=== PATIENT | female | born 1945 | race Caucasian/White ===

== ENCOUNTER 2022-07-29 13:51 | Inpatient (IN) | payer MEDICARE, OTHER ==
[~2022-07-29] VITALS: Ht 170.2 cm; Wt 99.3 kg
[2022-07-29] MEDS ORDERED: IV NS 0.9% 1,000 ML BAG IV ONE (14:30)
--- NOTE | 2022-07-29 14:32 | NUR ---
COVID SWAB COLLECTED AND SENT TO LAB
[2022-07-29] MEDS ORDERED: POLY17PO4 GT (14:37)
[2022-07-29] MEDS ORDERED: HEPA50007 SQ (14:37)
[2022-07-29] MEDS ORDERED: AMIO200T5 GT (14:37)
[2022-07-29] MEDS ORDERED: DIPH25CA51 GT (14:37)
[2022-07-29] MEDS ORDERED: POTA20TA29 GT (14:37)
[2022-07-29] MEDS ORDERED: FOLI1TAB34 GT (14:37)
[2022-07-29] MEDS ORDERED: ACET-2605 GT (14:37)
[2022-07-29] MEDS ORDERED: ASCO-352 GT (14:37)
[2022-07-29] MEDS ORDERED: CHLO473M5 MM (14:37)
[2022-07-29] MEDS ORDERED: FAMO20TA8 GT (14:37)
[2022-07-29] MEDS ORDERED: IPRA4AER IH ×2 (14:37)
[2022-07-29] MEDS ORDERED: INSU100V7 SQ (14:37)
[2022-07-29] MEDS ORDERED: TRAM50TA2 GT (14:37)
[2022-07-29] MEDS ORDERED: PIPE3.379 IV (14:37)
[2022-07-29] MEDS ORDERED: QUET25TA GT (14:37)
[2022-07-29] MEDS ORDERED: NUT.237L67 GT (14:37)
[2022-07-29] MEDS ORDERED: DEXT50DI8 IV (14:37)
[2022-07-29] MEDS ORDERED: DIPH28CR10 TP (14:37)
[2022-07-29] MEDS ORDERED: ZINC1CAP3 GT (14:37)
[2022-07-29] MEDS ORDERED: EPOE1VIA6 SQ (14:37)
[2022-07-29] MEDS ORDERED: NITR0.4T48 SL (14:37)
[2022-07-29] MEDS ORDERED: ACET-868 GT (14:37)
[2022-07-29] MEDS ORDERED: LEVO125T8 GT (14:37)
[2022-07-29] MEDS ORDERED: SENN-261 GT (14:37)
[2022-07-29] MEDS ORDERED: AMIN30LI2 GT (14:37)
[2022-07-29] MEDS ORDERED: INSU100V3 SQ (14:37)
[2022-07-29] MEDS ORDERED: PANT40SU2 GT (14:37)
[2022-07-29 14:40] LABS: BASOPHILS % (AUTO) 0.2 % (0.0-2.0); LYMPHOCYTES # (AUTO) 2.1 K/uL (0.8-4.8); MEAN CORPUSCULAR HGB CONC 34 g/dl (31.0-36.0); MEAN CORPUSCULAR VOLUME 103 fL (82-100); MONOCYTES # (AUTO) 0.7 K/uL (0.1-1.30); MONOCYTES % (AUTO) 6.5 % (2.0-12.0); NEUTROPHILS # (AUTO) 8.3 K/uL (1.8-8.9); NEUTROPHILS % (AUTO) 73.3 % (43.0-81.0); PLATELET COUNT (AUTO) 263 K/uL (150-450); WHITE BLOOD COUNT (AUTO) 11.3 K/uL (4.3-11.0)
[2022-07-29 14:43] LABS: RED BLOOD CELL COUNT(AUTO) 1.94 MIL/uL (4.0-5.2)
[2022-07-29 14:46] LABS: HEMATOCRIT 20 % (33-45); HEMOGLOBIN 6.8 g/dL (11.5-14.8)
--- NOTE | 2022-07-29 14:53 | NUR ---
URINE SAMPLE COLLECTED AND SENT TO LAB
[2022-07-29 15:20] LABS: ALANINE AMINOTRANSFERASE 49 U/L (12-78); ALKALINE PHOSPHATASE 128 U/L (46-116); ASPARTATE AMINOTRANSFERASE 53 U/L (15-37); BILIRUBIN,DIRECT 0.1 mg/dL (0.0-0.2); BILIRUBIN,TOTAL 0.2 mg/dL (0.2-1.0); CALCIUM, SERUM 10.3 mg/dL (8.5-10.1); CARBON DIOXIDE 31 mmol/L (21-32); CHLORIDE 93 mmol/L (98-107); CREATININE 2.8 mg/dL (0.6-1.3); GLUCOSE 208 mg/dL (74-106); POTASSIUM 4.1 mmol/L (3.5-5.1); SODIUM SERUM 130 mmol/L (136-145); TOTAL PROTEIN, SERUM 7.5 g/dL (6.4-8.2)
[2022-07-29 15:32] LABS: ALBUMIN 1.2 g/dL (3.4-5.0); UREA NITROGEN, BLOOD 92 mg/dL (7-18)
[2022-07-29 16:10] LABS: COLOR,URINE YELLOW (YELLOW)
[2022-07-29 16:11] LABS: BILIRUBIN,URINE NEGATIVE (NEGATIVE); PH,URINE 7.5 (5.0-8.0); PROTEIN,URINE 2+ mg/dl (NEGATIVE); UGLUCOSE NEGATIVE (NEGATIVE); UROBILINOGEN,URINE 0.2 EU/dL (0.2)
[2022-07-29 16:12] LABS: LEUKOCYTE ESTERASE ,URINE 3+ (NEGATIVE); NITRITE, URINE NEGATIVE (NEGATIVE)
[2022-07-29 16:13] LABS: BACTERIA,URINE Moderate /HPF (None Seen); SQUAMOUS EPITHELIAL CELL,UR Few /HPF (None Seen)
--- NOTE | 2022-07-29 17:07 | NUR ---
BED GIVEN 102
--- NOTE | 2022-07-29 17:17 | NUR ---
PT REPORT GIVEN TO BIMAL JORDAN.
[2022-07-29 17:27] LABS: BASOPHILS % (MANUAL) 0 % (0.0-2.0); EOSINOPHILS % (MANUAL) 1 % (0-4); LYMPHOCYTES % (MANUAL) 17 % (16-48); MONOCYTES % (MANUAL) 6 % (0-11.0); NEUTROPHILS % (MANUAL) 76 (42-76)
[2022-07-29] MEDS ORDERED: diphenhydrAMINE HCL 25 MG CAPSULE PO PRN (17:30)
[2022-07-29] MEDS ORDERED: MAGNESIUM HYDROXIDE 30 ML UDC PO PRN (17:30)
[2022-07-29] MEDS ORDERED: POLYETHYLENE GLYCOL 3350 17 GM POWD.PACK GT PRN (17:30)
[2022-07-29] MEDS ORDERED: DEXTROSE 50%-WATER 50 ML DISP.SYRIN IV PRN ×2 (17:30)
[2022-07-29] MEDS ORDERED: ONDANSETRON HCL/PF 4 MG/2 ML VIAL IVP PRN (17:30)
[2022-07-29] MEDS ORDERED: NEPRO VAN 237 ML CAN GT SCH (17:30)
[2022-07-29] MEDS ORDERED: ACETAMINOPHEN ES 500 MG TABLET GT PRN (17:30)
[2022-07-29] MEDS ORDERED: ACETAMINOPHEN 325 MG TABLET PO PRN ×2 (17:30)
[2022-07-29] MEDS ORDERED: TRAMADOL HCL 50 MG TABLET GT PRN (17:30)
[2022-07-29] MEDS ORDERED: MAG HYDROX/AL HYDROX/SIMETH 30 ML UDC PO PRN (17:30)
[2022-07-29] MEDS ORDERED: Z GUARD REMEDY 4 OZ OINT TP PRN (17:30)
--- NOTE | 2022-07-29 18:11 | NUR ---
PT TRANSFERRED TO 106 VIA [place] ACLS PROTOCOL, ACCOMPANIED BY RT. WARM HANDOFF GIVEN TO RN ASSIGNED.
--- NOTE | 2022-07-29 18:34 | NUR ---
RN NOTE RECEIVED PATIENT FOR LUIS
[2022-07-29] MEDS: BLOOD SUGAR DIAGNOSTIC 1 EACH STRIP IN SCH ×2 (18:38→23:36)
[2022-07-29] MEDS: VIT B CMPLX 3/FA/VIT C/BIOTIN 1 TAB TABLET GT SCH (18:39)
[2022-07-29] MEDS: IV NS 0.9% 1,000 ML IV PRN (18:40)
--- NOTE | 2022-07-29 19:36 | NUR ---
INITIAL RIGHT UPPER EXTREMITY VENOUS SHOWED POSITIVE FOR SVT AT RIGHT MEDIAN CUBITAL VEIN. ADVISED SQL REPORT ANALYST OF PRELIMINARY FINDING.
--- NOTE | 2022-07-29 19:45 | NUR ---
RN NOTE PATIENT GIVEN TO NIGHT NURSE FOR LUIS.
[2022-07-29 20:00] VITALS: BP 97/42
[2022-07-29] MEDS ORDERED: VANCOMYCIN 1.25 GM in IV D5W 250 ML IV ONE (20:00)
--- NOTE | 2022-07-29 21:36 | NUR ---
SANCHEZ SAMUELS INFORMED PATIENT WITH POOR IV ACCESS, NOT BEING ABLE TO GIVE ABX IV OR RBC'S. ATTEMPTED MULTIPLE TIMES WITH ORDERS FOR MIDLINE.
[2022-07-29 22:00] VITALS: BP 97/42
[2022-07-29] MEDS ORDERED: ZOLPIDEM TARTRATE 5 MG TABLET PO PRN (22:00)
[2022-07-29] MEDS: INSULIN GLARGINE, 100 UNIT/ML CARTRIDGE SQ SCH (23:36)
[2022-07-29] MEDS: INSULIN REGULAR, HUMAN 100 UNIT/ML 3 ML VIAL SQ PRN (23:38)
[2022-07-29] MEDS: CHLORHEXIDINE GLUCONATE 15 ML UDC MM SCH (23:41)
[2022-07-29] MEDS: SENNOSIDES 8.6 MG TABLET GT SCH (23:41)
[2022-07-29] MEDS: CEFEPIME 1 GM in IV D5W 50 ML IV SCH (23:50)
[2022-07-30] VITALS (15 sets, daily range): BP systolic 81–123; BP diastolic 39–69
--- NOTE | 2022-07-30 00:14 | NUR ---
SPOKE TO RAVIN GARCIA DAUGHTER IN LAW,[phone], AND CONSENT OBTAINED FOR BLOOD TRANSFUSION OBTAINED. PER DAUGHTER IN LAW SHE STATED SHE ALWAYS GIVES CONSENTS.
[2022-07-30] MEDS ORDERED: NEPRO 1,000 ML BOTTLE GT PRN (06:00)
--- NOTE | 2022-07-30 06:30 | NUR ---
RN CLOSING NOTE: EYES OPEN. DOES NOT FOLLOW COMMANDS. TRACH WITH VENT WORKING AT PRESCRIBED SETTINGS. GT IN PLACE PATENT. WOUND CARE TO AFFECTED AREAS OF SACRAL, RIGHT HIP, LEFT BUTTOCK, BILATERAL HEELS, DRY RASH ON BACK, FOR WOUND CONSULT. IV ON LEFT AC PATENT WITH IVF OF 75 ML NS. BUE, BLE EDEMA. ELEVATED WITH PILLOWS. S/P BLOOD TRANSFUSION. BLOOD GLUCOSE CHECKED AND COVERED ORDERED. TURNED AND REPOSITIONED WITH PILLOWS. KEPT CLEAN AND COMFORTABLE. HOB ELEVATED SEMI-FOWLERS POSITION. BILATERAL HALF SIDE RAILS UP X2. BED IN LOW POSITION, BED EXIT ALARM, LOCKED, CALL LIGHT IN REACH. LEFT SOFT WRIST RESTRAINT WITH SKIN CHECKS, NO BREAKDOWN.
[2022-07-30] MEDS: BLOOD SUGAR DIAGNOSTIC 1 EACH STRIP IN SCH ×4 (06:37→23:02)
[2022-07-30 06:38] LABS: BASOPHILS % (AUTO) 0.1 % (0.0-2.0); EOSINOPHILS % (AUTO) 2.3 % (0.0-6.0); HEMATOCRIT 23 % (33-45); HEMOGLOBIN 7.7 g/dL (11.5-14.8); LYMPHOCYTES # (AUTO) 1.8 K/uL (0.8-4.8); LYMPHOCYTES % (AUTO) 14.4 % (20.0-44.0); MEAN CORPUSCULAR HGB CONC 33 g/dl (31.0-36.0); MEAN CORPUSCULAR VOLUME 100 fL (82-100); MONOCYTES # (AUTO) 0.7 K/uL (0.1-1.30); MONOCYTES % (AUTO) 5.9 % (2.0-12.0); NEUTROPHILS # (AUTO) 9.8 K/uL (1.8-8.9); NEUTROPHILS % (AUTO) 77.3 % (43.0-81.0); PLATELET COUNT (AUTO) 259 K/uL (150-450); RED BLOOD CELL COUNT(AUTO) 2.31 MIL/uL (4.0-5.2); WHITE BLOOD COUNT (AUTO) 12.7 K/uL (4.3-11.0)
[2022-07-30] MEDS: INSULIN REGULAR, HUMAN 100 UNIT/ML 3 ML VIAL SQ PRN ×4 (06:41→23:04)
[2022-07-30 07:20] LABS: CHOLESTEROL 76 mg/dL (<200); HDL CHOLESTEROL 13 mg/dL (40-60); LDL 28 mg/dL (0-99); T4 (THYROXINE) 3.4 ug/dL (4.7-13.3); THYROID STIMULATING HORMONE 19.344 uIU/mL (0.358-3.74); TRIGLYCERIDES 244 mg/dL (30-150)
[2022-07-30 07:25] LABS: IRON, SERUM 104 ug/dl (50-175); TOTAL IRON BINDING CAPACITY 86 ug/dl (250-450)
[2022-07-30] MEDS ORDERED: LEVOTHYROXINE SODIUM 125 MCG TABLET GT SCH (07:30)
--- NOTE | 2022-07-30 07:48 | NUR ---
[facility] RN OPENING NOTES: RECEIVED PATIENT IN BED AWAKE, ALERT AND ORIENTED X 1, ON MECHANICAL VENT PRESCRIBED, NO RESPIRATORY DISTRESS NOTED.IV ACCESS LEFT AC PATENT WITH NS RUNNING 75 ML/HR, Y.WITH GT WILL START AT 8AM X 20 HOUR.BRUNO CATHTER CONNECTED TO DRAINING BAG VIA GRAVITY DRAINING YELLOW CLEAR URINE.NOTED WITH LEFT HAND SOFT RESTRAINT.SKIN AND CIRCULATION CHECKED WITHIN NORMAL.NOTED WITH RIGHT ARM AND BOTH LEG EDEMA +4. BED IN LOW AND LOCKED POSITION, SIDE RAILS UP, CALL LIGHT WITHIN REACH.WILL MONITOR
--- NOTE | 2022-07-30 08:58 | NUR ---
WOUND CARE CONSULT: ATTEMPTED TO SEE PT THIS AM BUT PT WAS NOT TURNED DUE TO HAVING PROCEDURE. HEELS NOTED TO HAVE DEEP TISSUE INJURIES AND RT ARM EDEMA NOTED. G TUBE STOMA NOTED TO BE LARGE. G TUBE CLAMPED. 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 DR CLAYTON AND DR LORENZ CALLED FOR SURGICAL AND DPM CONSULTS. PT IS ON JESUSITA ISOFLEX LOW AIRLOSS BED. BRUNO CATH NOTED. DISCUSSED SKIN PROTECTION WITH NURSING STAFF IN AGREEMENT WITH PLAN OF CARE.
[2022-07-30] MEDS: PROSTAT (PYXIS) 30 ML UDC GT SCH (09:00)
[2022-07-30] MEDS: AMIODARONE HCL 200 MG TABLET GT SCH (09:00)
[2022-07-30 09:22] LABS: CALCIUM, SERUM 10.1 mg/dL (8.5-10.1); CHLORIDE 94 mmol/L (98-107); CREATININE 2.9 mg/dL (0.6-1.3); GLUCOSE 200 mg/dL (74-106); MAGNESIUM 2.5 mg/dL (1.8-2.4); PHOSPHORUS 3.1 mg/dL (2.5-4.9); POTASSIUM 3.7 mmol/L (3.5-5.1); SODIUM SERUM 130 mmol/L (136-145)
[2022-07-30 09:58] LABS: CARBON DIOXIDE 27 mmol/L (21-32)
[2022-07-30 09:59] LABS: UREA NITROGEN, BLOOD 99 mg/dL (7-18)
[2022-07-30] MEDS: CHLORHEXIDINE GLUCONATE 15 ML UDC MM SCH ×2 (10:24→21:09)
[2022-07-30] MEDS: PANTOPRAZOLE 40 MG VIAL IV SCH ×2 (10:25→17:04)
[2022-07-30] MEDS: LEVOTHYROXINE SODIUM 137 MCG TABLET PO SCH (10:25)
[2022-07-30] MEDS: QUETIAPINE FUMARATE 25 MG TABLET GT SCH ×3 (10:25→17:05)
[2022-07-30] MEDS: ZINC SULFATE 220 MG CAPSULE GT SCH (10:25)
[2022-07-30] MEDS: ASCORBIC ACID 500 MG TABLET GT SCH (10:27)
--- NOTE | 2022-07-30 11:00 | NUR ---
RN NOTES: NOTIFIED MICHAEL CANALES SOILS ANALYST CORDARONE VIA GT NOT GIVEN DUE TO LOW BP 89/39 WITH ORDER OF MIDODRINE VIA GT
[2022-07-30] MEDS: MIDODRINE HCL (5MG) 5 MG TABLET GT SCH ×3 (11:41→17:04)
[2022-07-30] MEDS ORDERED: IV NS 0.9% 500 ML IV ONE (12:30)
--- NOTE | 2022-07-30 14:00 | NUR ---
RN NOTES: NOTIFIED MICHAEL MARADIAGASERGEI AFTER 500 ML BOLUS AND MIDODRINE GIVEN AROUND 12NOON BP IS 80/40 WITH ORDER TO TRANSFER TO ICU AND START LEVOPHED, CHARGE NURSE EDUIN AWARE OK TO START LEVOPHED NOW . PT IS DNR CALL DAUGHTER IN LAW RAVIN ASKED IF OK TO PROCEED WITH IV AND ICU EVEN PT IS DNR COMFORT SHE SAID OF COURSE GO AHEAD AND DO IT
--- NOTE | 2022-07-30 14:22 | NUR ---
RN notes: called Amy Meraz BP after midodrine and bolus 74/41 with order to upgrade to icu and start levophed , Charge nurse and nurse supervisor core drilling made aware.
[2022-07-30] MEDS ORDERED: NOREPINEPHRINE 8 MG in IV NS 0.9% 242 ML IV PRN (14:30)
--- NOTE | 2022-07-30 14:44 | NUR ---
PER NURSING SUP WILL KEEP PT. IN [facility] ICU OVERFLOW SINCE NO BED IN ICU,WILL KEEP TO MONITOR.
--- NOTE | 2022-07-30 17:45 | NUR ---
RN NOTES: DR MICHAEL CANALES SPOKE TO FAMILY WHO DECIDED COMFORT MEASURES WITH ORDER TO DC LEVOPHED
[2022-07-30] MEDS: VIT B CMPLX 3/FA/VIT C/BIOTIN 1 TAB TABLET GT SCH (18:04)
--- NOTE | 2022-07-30 19:00 | NUR ---
RN CLOSING NOTE: PT IN BED ASLEEP DOES NOT FOLLOW COMMANDS. TRACH WITH VENT WORKING AT PRESCRIBED SETTINGS. GT IN PLACE PATENT. WOUND CARE TO AFFECTED AREAS OF SACRAL, RIGHT HIP, LEFT BUTTOCK, BILATERAL HEELS, DRY RASH ON BACK, FOR WOUND CONSULT. IV ON LEFT HAND PATENT WITH IVF OF 75 ML NS. ALSO WITH LEFT UPPER ARM MIDLINE. PATENT FLUSHING WELL.BUE, BLE EDEMA. ELEVATED WITH PILLOWS. BLOOD GLUCOSE CHECKED AND COVERED ORDERED. TURNED AND REPOSITIONED WITH PILLOWS. KEPT CLEAN AND COMFORTABLE. HOB ELEVATED SEMI-FOWLERS POSITION. BILATERAL HALF SIDE RAILS UP X2. BED IN LOW POSITION, BED EXIT ALARM, LOCKED, CALL LIGHT IN REACH. LEFT SOFT WRIST RESTRAINT WITH SKIN CHECKS, NO BREAKDOWN.
[2022-07-30 19:34] LABS: OCCULT BLOOD STOOL POSITIVE (NEGATIVE)
--- NOTE | 2022-07-30 19:40 | NUR ---
[facility] RN OPENING NOTES: RECEIVED PATIENT IN BED OBTUNDED, OPENS EYES, ON MECHANICAL VENT PRESCRIBED, NO RESPIRATORY DISTRESS NOTED. IV ACCESS LEFT UA ML WITH NS RUNNING 75 ML/HR, WITH GT IN PLACED RUNNING NEPHRO AT 45 ML/HR X 20 HOUR. WITH BRUNO CATHETER CONNECTED TO DRAINING BAG VIA GRAVITY DRAINING YELLOW CLEAR URINE. NOTED WITH RIGHT ARM AND BOTH LEG EDEMA +4. BED IN LOW AND LOCKED POSITION, SIDE RAILS UP, CALL LIGHT WITHIN REACH. PT FOCUS ON COMFORT MEASURES, FAMILY AT BEDSIDE, WILL CONTINUE TO MONITOR THROUGHOUT THE SHIFT.
[2022-07-30] MEDS: IV NS 0.9% 1,000 ML IV PRN (19:55)
[2022-07-30] MEDS: CEFEPIME 1 GM in IV D5W 50 ML IV SCH (21:09)
[2022-07-30] MEDS: SENNOSIDES 8.6 MG TABLET GT SCH (21:09)
[2022-07-30 21:45] LABS: BAND % (MANUAL) 7 % (0.0-5.0); EOSINOPHILS % (MANUAL) 2 % (0-4); LYMPHOCYTES % (MANUAL) 11 % (16-48); MONOCYTES % (MANUAL) 2 % (0-11.0); NEUTROPHILS % (MANUAL) 78 (42-76)
[2022-07-30] MEDS: INSULIN GLARGINE, 100 UNIT/ML CARTRIDGE SQ SCH (23:03)
[2022-07-31] VITALS: BP 91/42
--- NOTE | 2022-07-31 | NUR ---
RN NOTE BS CHECKED AT 156 MG/DL, 2 UNITS OF INSULIN GIVEN PER SLIDING SCALE. WILL CONT TO MONITOR.
[2022-07-31 04:00] VITALS: BP 83/33
--- NOTE | 2022-07-31 04:00 | NUR ---
RN NOTE HOLD FEEDING AT THIS TIME. NEPHRO 45 ML/HR ORDERED X 20 HRS ONLY. RESUME FEEDING AT 0800. WILL ENDORSE TO AM SHIFT NURSE.
[2022-07-31] MEDS: BLOOD SUGAR DIAGNOSTIC 1 EACH STRIP IN SCH ×4 (05:09→23:53)
[2022-07-31] MEDS: INSULIN REGULAR, HUMAN 100 UNIT/ML 3 ML VIAL SQ PRN ×2 (05:13→17:19)
--- NOTE | 2022-07-31 05:36 | NUR ---
RN NOTE BS CHECKED AT 166 MG/DL, 3 UNITS OF INSULIN GIVEN PER SLIDING SCALE. WILL CONT TO MONITOR.
[2022-07-31 05:59] LABS: BASOPHILS % (AUTO) 0.2 % (0.0-2.0); EOSINOPHILS % (AUTO) 3.2 % (0.0-6.0); HEMATOCRIT 21 % (33-45); LYMPHOCYTES # (AUTO) 1.8 K/uL (0.8-4.8); LYMPHOCYTES % (AUTO) 15.3 % (20.0-44.0); MEAN CORPUSCULAR HGB CONC 34 g/dl (31.0-36.0); MEAN CORPUSCULAR VOLUME 101 fL (82-100); MONOCYTES # (AUTO) 0.5 K/uL (0.1-1.30); MONOCYTES % (AUTO) 4.3 % (2.0-12.0); NEUTROPHILS # (AUTO) 9.2 K/uL (1.8-8.9); PLATELET COUNT (AUTO) 256 K/uL (150-450); RED BLOOD CELL COUNT(AUTO) 2.05 MIL/uL (4.0-5.2); WHITE BLOOD COUNT (AUTO) 11.9 K/uL (4.3-11.0)
[2022-07-31 06:16] LABS: CALCIUM, SERUM 8.8 mg/dL (8.5-10.1); CARBON DIOXIDE 24 mmol/L (21-32); CHLORIDE 103 mmol/L (98-107); CREATININE 2.5 mg/dL (0.6-1.3); GLUCOSE 164 mg/dL (74-106); MAGNESIUM 2.3 mg/dL (1.8-2.4); PHOSPHORUS 2.6 mg/dL (2.5-4.9); POTASSIUM 2.9 mmol/L (3.5-5.1); SODIUM SERUM 138 mmol/L (136-145)
--- NOTE | 2022-07-31 06:43 | NUR ---
[facility] RN CLOSING NOTES: PATIENT REMAINS IN BED OPENS EYES, ON MECHANICAL VENT PRESCRIBED, NO RESPIRATORY DISTRESS NOTED. IV ACCESS LEFT UA ML WITH NS RUNNING 75 ML/HR, GTUBE FEEDING STOPPED AT THIS TIME, NOTED WITH GREENISH COLORED DISCHARGE FROM THE SITE. ALL DUE MEDS GIVEN, KEPT DRY AND CLEAN, WITH BRUNO CATHETER DRAINING VIA GRAVITY WITH YELLOW COLORED URINE. NOTED WITH RIGHT ARM AND BOTH LEG EDEMA +4. BED IN LOW AND LOCKED POSITION, SIDE RAILS UP, CALL LIGHT WITHIN REACH. PT FOCUS ON COMFORT MEASURES, WILL ENDORSE TO AM SHIFT NURSE FOR CONTINUITY OF CARE.
[2022-07-31 06:56] LABS: UREA NITROGEN, BLOOD 95 mg/dL (7-18)
--- NOTE | 2022-07-31 07:13 | NUR ---
PER NIGHT RN REPORT, GTUBE IS OUT OF PLACE, WAITING FOR MD'S TO ADDRESS. PT IS NPO FOR THE TIME BEING.
[2022-07-31] MEDS: LEVOTHYROXINE SODIUM 137 MCG TABLET PO SCH (07:14)
--- NOTE | 2022-07-31 07:44 | NUR ---
RN OPENING NOTES: PATIENT REMAINS IN BED OPENS EYES, ON MECHANICAL VENT PRESCRIBED, NO RESPIRATORY DISTRESS NOTED. IV ACCESS LEFT UA ML WITH NS RUNNING 75 ML/HR, GTUBE FEEDING STOPPED AT THIS TIME, NOTED WITH GREENISH COLORED DISCHARGE FROM THE SITE. UNTIL FURTHER NOTICE FROM MD'S, PT IS NPO. BRUNO CATHETER DRAINING VIA GRAVITY WITH YELLOW COLORED URINE. NOTED WITH RIGHT ARM AND BOTH LEG EDEMA +4. BED IN LOW AND LOCKED POSITION, SIDE RAILS UP, CALL LIGHT WITHIN REACH. PT FOCUS ON COMFORT MEASURES, WILL CONT. TO MONITOR THROUGHOUT SHIFT.
[2022-07-31 08:00] VITALS: BP 88/40
[2022-07-31] MEDS ORDERED: VANCOMYCIN 1 GM in IV D5W 250 ML IV SCH (08:00)
[2022-07-31] MEDS: AMIODARONE HCL 200 MG TABLET GT SCH (08:06)
[2022-07-31] MEDS: PROSTAT (PYXIS) 30 ML UDC GT SCH (08:06)
[2022-07-31] MEDS: QUETIAPINE FUMARATE 25 MG TABLET GT SCH ×3 (08:06→16:06)
[2022-07-31] MEDS: MIDODRINE HCL (5MG) 5 MG TABLET GT SCH ×4 (08:06→16:06)
[2022-07-31] MEDS: ASCORBIC ACID 500 MG TABLET GT SCH (08:06)
[2022-07-31] MEDS: ZINC SULFATE 220 MG CAPSULE GT SCH (08:07)
[2022-07-31] MEDS: CHLORHEXIDINE GLUCONATE 15 ML UDC MM SCH ×2 (08:09→21:05)
[2022-07-31] MEDS: PANTOPRAZOLE 40 MG VIAL IV SCH ×2 (08:09→16:07)
[2022-07-31] MEDS: POTASSIUM CL. PREMIX PERIPHER. 50 ML IV SCH ×4 (11:25→14:09)
[2022-07-31 12:00] VITALS: BP 91/36
[2022-07-31] MEDS: DAKINS QUARTER STRENGTH (0.125%) 480 ML BOTTLE TOP SCH (12:01)
[2022-07-31] MEDS: IV NS 0.9% 1,000 ML IV PRN (12:58)
[2022-07-31] MEDS: VANCOMYCIN 0.75 GM in IV D5W 250 ML IV SCH (15:27)
[2022-07-31 16:00] VITALS: BP 117/79
[2022-07-31] MEDS: VIT B CMPLX 3/FA/VIT C/BIOTIN 1 TAB TABLET GT SCH (17:15)
--- NOTE | 2022-07-31 18:23 | NUR ---
RN CLOSING NOTES: PATIENT REMAINS IN BED OPENS EYES, ON ORDERED MECHANICAL VENT SETTINGS, NO RESPIRATORY DISTRESS NOTED. IV ACCESS LEFT UA ML WITH NS RUNNING 75 ML/HR, GTUBE FEEDING STOPPED AT THIS TIME, NOTED WITH GREENISH COLORED DISCHARGE FROM THE SITE. UNTIL FURTHER NOTICE FROM MD'S, PT IS NPO. BRUNO CATHETER DRAINING VIA GRAVITY WITH YELLOW COLORED URINE. 200ML OUT DURING AM SHIFT. NOTED WITH RIGHT ARM AND BOTH LEG EDEMA +4. BED IN LOW AND LOCKED POSITION, SIDE RAILS UP, CALL LIGHT WITHIN REACH. PT FOCUS ON COMFORT MEASURES, WILL ENDORSE TO RECRUITING ADMINISTRATOR RN FOR LUIS.
--- NOTE | 2022-07-31 18:33 | NUR ---
RECEIVED CALL FROM [facility], PT IS POSITIVE FOR MRSA IN RIGHT NARE. Addendum: 07/31/22 at 1834 by ARPIT HAIR RN REPORT GIVEN BY ILENE SALGADO.
[2022-07-31 18:54] LABS: ABG OXYGEN SATURATION 98.2 % (92.0-98.5); ABG PCO2 35.7 mmHg (35.0-45.0); ABG PH 7.473 (7.350-7.450); ABG PO2 117.1 mmHg (75.0-100.0); COHb 0.3 % (0.5-1.5); MetHb 0.3 % (0.0-1.5); O2Hb 97.6 % (94.0-97.0); PEEP,BG 5 cm H2O; SITE, ABG Left Radial; VENT MODE, BG AC 40%; VT, ABG 500 mL
--- NOTE | 2022-07-31 19:10 | NUR ---
RN NOTE PATIENT IN BED, CONFUSED, IN NO ACUTE DISTRESS, ON [facility]ILEY XLT TO MECHANICAL VENT WITH PRESCRIBED SETTINGS, SATURATION AT 100%, SR WITH BBB ON THE MONITOR, HR IS 95. PASTOR MIDLINE AND L WRIST 20G PATENT AND FLUSHING WELL, NO S/S OF INFECTION OR INFILTRATION. GTUBE DISLODGED, TUBE LEFT IN PLACE TO KEEP STOMA OPEN, PENDING REINSERTION BY GI. BRUNO CATHETER DRAINING TO A CLEAR, YELLOW OUTPUT. SAFETY MEASURES IN PLACE, WILL CONTINUE TO MONITOR
[2022-07-31 20:00] VITALS: BP 102/53
[2022-07-31] MEDS: CEFEPIME 1 GM in IV D5W 50 ML IV SCH (21:04)
[2022-07-31] MEDS: MUPIROCIN OINT 2% 22 GM TUBE NS SCH (21:06)
[2022-07-31] MEDS: SENNOSIDES 8.6 MG TABLET GT SCH (21:07)
[2022-07-31 21:08] LABS: BAND % (MANUAL) 2 % (0.0-5.0); EOSINOPHILS % (MANUAL) 4 % (0-4); LYMPHOCYTES % (MANUAL) 11 % (16-48); MONOCYTES % (MANUAL) 2 % (0-11.0); NEUTROPHILS % (MANUAL) 81 (42-76)
[2022-07-31] MEDS: INSULIN GLARGINE, 100 UNIT/ML CARTRIDGE SQ SCH (22:00)
[2022-08-01] VITALS: BP 92/39
[2022-08-01] MEDS: INSULIN REGULAR, HUMAN 100 UNIT/ML 3 ML VIAL SQ PRN ×2 (00:29→06:14)
[2022-08-01] MEDS: IV NS 0.9% 1,000 ML IV PRN (03:31)
[2022-08-01 04:00] VITALS: BP 103/40
--- NOTE | 2022-08-01 04:30 | NUR ---
RT pt received on current vent settings. vent plugged in to red outlet. alarms on and audible. trach secure and patent. ambu bag at bedside. spare trach at bedside. shift uneventful.
[2022-08-01] MEDS: BLOOD SUGAR DIAGNOSTIC 1 EACH STRIP IN SCH ×2 (06:13→12:38)
--- NOTE | 2022-08-01 07:14 | NUR ---
RN OPEN NOT RECEIVED PATIENT IN BED OPENS EYES, ON MECHANICAL VENT PRESCRIBED, NO RESPIRATORY DISTRESS NOTED. IV ACCESS LEFT UA ML WITH NS RUNNING 75 ML/HR, GTUBE FEEDING STOPPED AT THIS NOTED WITH GREENISH COLORED DISCHARGE FROM THE SITE. UNTIL FURTHER NOTICE FROM MD'S, PT IS NPO. BRUNO CATHETER DRAINING VIA GRAVITY WITH YELLOW COLORED URINE. NOTED WITH RIGHT ARM AND BOTH LEG EDEMA +4. BED IN LOW AND LOCKED POSITION, SIDE RAILS UP, CALL LIGHT WITHIN REACH. PT FOCUS ON COMFORT MEASURES, WILL CONT. TO MONITOR THROUGHOUT SHIFT.
--- NOTE | 2022-08-01 07:28 | NUR ---
RN NOTE PER DR CANALES, HE WILL REPLACE GTUBE 08/01 WITH 24 FR, [facility]ENTRAL SUPPLY WAS NOTIFIED VIA VOICEMAIL, R[place] WALLIS MADE AWARE AND WILL FOLLOW UP.
--- NOTE | 2022-08-01 07:29 | NUR ---
RN OPENING NOTES: RECEIVED PATIENT IN BED OBTUNDED, OPENS EYES, ON MECHANICAL VENT PRESCRIBED, NO RESPIRATORY DISTRESS NOTED. IV ACCESS LEFT UA ML WITH NS RUNNING 75 ML/HR, G TUBE WAS MISPLACED , WILL HAVE THE PROCEDURE OF G TUBE REPLACEMENT TODAY .PATIENT HAS BRUNO CATHETER CONNECTED TO DRAINING BAG VIA GRAVITY DRAINING YELLOW CLEAR URINE. NOTED WITH RIGHT ARM AND BOTH LEG EDEMA +4. BED IN LOW AND LOCKED POSITION, SIDE RAILS UP, CALL LIGHT WITHIN REACH. POC FOCUS ON COMFORT MEASURES, WILL CONTINUE TO MONITOR THROUGHOUT THE SHIFT.
[2022-08-01 07:35] LABS: BASOPHILS % (AUTO) 0.3 % (0.0-2.0); EOSINOPHILS % (AUTO) 3.2 % (0.0-6.0); HEMATOCRIT 23 % (33-45); HEMOGLOBIN 7.7 g/dL (11.5-14.8); LYMPHOCYTES # (AUTO) 1.4 K/uL (0.8-4.8); LYMPHOCYTES % (AUTO) 11.7 % (20.0-44.0); MEAN CORPUSCULAR HGB CONC 33 g/dl (31.0-36.0); MEAN CORPUSCULAR VOLUME 102 fL (82-100); MONOCYTES # (AUTO) 0.6 K/uL (0.1-1.30); MONOCYTES % (AUTO) 4.5 % (2.0-12.0); NEUTROPHILS # (AUTO) 9.9 K/uL (1.8-8.9); NEUTROPHILS % (AUTO) 80.3 % (43.0-81.0); PLATELET COUNT (AUTO) 301 K/uL (150-450); RED BLOOD CELL COUNT(AUTO) 2.26 MIL/uL (4.0-5.2); WHITE BLOOD COUNT (AUTO) 12.3 K/uL (4.3-11.0)
[2022-08-01] MEDS: LEVOTHYROXINE SODIUM 137 MCG TABLET PO SCH ×2 (07:42→08:38)
[2022-08-01 08:07] LABS: CALCIUM, SERUM 9.3 mg/dL (8.5-10.1); CARBON DIOXIDE 28 mmol/L (21-32); CHLORIDE 106 mmol/L (98-107); CREATININE 2.6 mg/dL (0.6-1.3); GLUCOSE 162 mg/dL (74-106); MAGNESIUM 2.5 mg/dL (1.8-2.4); PHOSPHORUS 3.6 mg/dL (2.5-4.9); POTASSIUM 3.5 mmol/L (3.5-5.1); SODIUM SERUM 140 mmol/L (136-145)
[2022-08-01 08:18] LABS: UREA NITROGEN, BLOOD 82 mg/dL (7-18)
[2022-08-01] MEDS: ASCORBIC ACID 500 MG TABLET GT SCH (08:39)
[2022-08-01] MEDS: AMIODARONE HCL 200 MG TABLET GT SCH (08:39)
[2022-08-01] MEDS: MIDODRINE HCL (5MG) 5 MG TABLET GT SCH ×2 (08:40→12:41)
[2022-08-01] MEDS: QUETIAPINE FUMARATE 25 MG TABLET GT SCH ×2 (08:40→12:40)
[2022-08-01] MEDS ORDERED: DIATR MEGLU/DIATRIZOATE SODIUM 30 ML BOTTLE (GASTROGRAPHIN) ONE (08:50)
[2022-08-01] MEDS: CHLORHEXIDINE GLUCONATE 15 ML UDC MM SCH (08:59)
[2022-08-01] MEDS: PROSTAT (PYXIS) 30 ML UDC GT SCH (08:59)
[2022-08-01] MEDS ORDERED: PANTOPRAZOLE 40 MG/PACK PACK GT SCH (09:00)
[2022-08-01] MEDS: ZINC SULFATE 220 MG CAPSULE GT SCH (09:01)
[2022-08-01] MEDS: DAKINS QUARTER STRENGTH (0.125%) 480 ML BOTTLE TOP SCH (09:09)
[2022-08-01] MEDS: MUPIROCIN OINT 2% 22 GM TUBE NS SCH (09:10)
[2022-08-01 10:58] VITALS: BP 97/36
[2022-08-01] MEDS ORDERED: PANT40SU2 GT (11:58)
[2022-08-01] MEDS ORDERED: LEVO137T24 PO (11:58)
[2022-08-01] MEDS ORDERED: CEFE1PIG3 IV (11:58)
[2022-08-01] MEDS ORDERED: MIDO5TAB4 GT (11:58)
[2022-08-01 12:00] VITALS: BP 76/40
[2022-08-01 13:33] LABS: BAND % (MANUAL) 3 % (0.0-5.0); EOSINOPHILS % (MANUAL) 5 % (0-4); LYMPHOCYTES % (MANUAL) 10 % (16-48); METAMYELOCYTES % 2 % (0-0); MONOCYTES % (MANUAL) 4 % (0-11.0); MYELOCYTES % 2 % (0-0); NEUTROPHILS % (MANUAL) 74 (42-76)
[2022-08-01] MEDS: VANCOMYCIN 0.75 GM in IV D5W 250 ML IV SCH (15:00)
[2022-08-01 16:07] VITALS: BP 116/60
--- NOTE | 2022-08-01 16:47 | NUR ---
RN NOTE DISCHARGE ORDER RECEIVED FROM THE DOCTOR , DISCHARGE INSTRUCTIONS PROVIDED IN [facility] AND REPORT WAS GIVEN TO THE RN LATONIA .PATIENT WAS TRANSFERRED TO THE SUBACUTE FACILITY . DISCHARGED FROM [facility]
== END 2022-08-01 17:42 | DRG 253 ==
LOC: ER 13:57 → TELE1 17:10 → TELE-TD 20:29 → ICUOV 07-30 14:22 → TELE-TD 07-30 17:56 → MEDSG1 07-31 10:28 → TELE1 07-31 12:17
PROVIDERS: ADMIT Nurse Practitioner Acute Care; ATTEND Nurse Practitioner Acute Care
PROC: 5A1945Z Respiratory Ventilation, 24-96 Consecutive Hours (ICD-10-PCS; principal; 2022-07-29)
PROC: 30233N1 Transfusion of Nonautologous Red Blood Cells into Peripheral Vein, Percutaneous Approach (ICD-10-PCS; 2022-07-29)
PROC: 05HA33Z Insertion of Infusion Device into Left Brachial Vein, Percutaneous Approach (ICD-10-PCS; 2022-07-30)
DX: K92.2 Gastrointestinal hemorrhage, unspecified (principal); N17.0 Acute kidney failure with tubular necrosis; J96.20 Acute and chronic respiratory failure, unspecified whether with hypoxia or hypercapnia; J95.851 Ventilator associated pneumonia; G93.41 Metabolic encephalopathy; E43 Unspecified severe protein-calorie malnutrition; L89.154 Pressure ulcer of sacral region, stage 4; L89.324 Pressure ulcer of left buttock, stage 4; L89.314 Pressure ulcer of right buttock, stage 4; L89.626 Pressure-induced deep tissue damage of left heel; D68.59 Other primary thrombophilia; E87.1 Hypo-osmolality and hyponatremia; I13.0 Hypertensive heart and chronic kidney disease with heart failure and stage 1 through stage 4 chronic kidney disease, or unspecified chronic kidney disease; L89.616 Pressure-induced deep tissue damage of right heel; I50.9 Heart failure, unspecified; I95.89 Other hypotension; Z99.11 Dependence on respirator [ventilator] status; Z93.0 Tracheostomy status; E11.22 Type 2 diabetes mellitus with diabetic chronic kidney disease; Z93.1 Gastrostomy status; R13.10 Dysphagia, unspecified; Z20.822 Contact with and (suspected) exposure to COVID-19; I48.91 Unspecified atrial fibrillation; I35.0 Nonrheumatic aortic (valve) stenosis; E03.9 Hypothyroidism, unspecified; I69.351 Hemiplegia and hemiparesis following cerebral infarction affecting right dominant side; Z74.01 Bed confinement status; Z51.5 Encounter for palliative care; F41.9 Anxiety disorder, unspecified; N18.9 Chronic kidney disease, unspecified; Z91.048 Other nonmedicinal substance allergy status; Z88.1 Allergy status to other antibiotic agents; Z79.4 Long term (current) use of insulin; Z79.01 Long term (current) use of anticoagulants; Z79.899 Other long term (current) drug therapy; Z79.51 Long term (current) use of inhaled steroids; Y84.8 Other medical procedures as the cause of abnormal reaction of the patient, or of later complication, without mention of misadventure at the time of the procedure; Y92.129 Unspecified place in nursing home as the place of occurrence of the external cause; B96.89 Other specified bacterial agents as the cause of diseases classified elsewhere; I25.2 Old myocardial infarction; I25.10 Atherosclerotic heart disease of native coronary artery without angina pectoris; E88.09 Other disorders of plasma-protein metabolism, not elsewhere classified; E87.6 Hypokalemia; Z68.34 Body mass index [BMI] 34.0-34.9, adult; E66.01 Morbid (severe) obesity due to excess calories; D50.0 Iron deficiency anemia secondary to blood loss (chronic); E86.0 Dehydration; E86.1 Hypovolemia
CPT/HCPCS: 31720; 36410; 36415; 36600; 71045-TC; 71250-TC; 74018; 76770-TC; 80048-TC; 80061-TC; 80076-TC; 80202-TC; 81001; 82272-TC; 82607-TC; 82962-TC; 83540-TC; 83605-TC; 83735-TC; 84100-TC; 84436-TC; 84443-TC; 84484-TC; 85025-TC; 85027-TC; 85730-TC; 86706; 86850-TC; 87040-TC; 87081-TC; 87086-TC; 87340; 93971-TC; 94002-TC; 94003-TC; 94760-TC; 94762-TC; 94799-TC; A6253; A6403; C9113; C9803; G0378; J0692; J1815; J3370; J3480; J7030; J7040; J7050; J7060; P9016; Q9963

== ENCOUNTER 2022-08-19 16:12 | Inpatient (IN) | payer MEDICARE, OTHER ==
[~2022-08-19] VITALS: Ht 167.6 cm; Wt 95.3 kg
[~2022-08-19 16:12] MED LIST: ACET-2605 GT; ACET-868 GT; AMIN30LI2 GT; AMIO200T5 GT; ASCO-352 GT; CEFE1PIG3 IV; CHLO473M5 MM; DEXT50DI8 IV; DIPH25CA51 GT; DIPH28CR10 TP; EPOE1VIA6 SQ; FOLI1TAB34 GT; HEPA50007 SQ; INSU100V3 SQ; INSU100V7 SQ; IPRA4AER IH; LEVO125T8 GT; LEVO137T24 PO; MIDO5TAB4 GT; NUT.237L67 GT; PANT40SU2 GT; PIPE3.379 IV; POLY17PO4 GT; POTA20TA29 GT; QUET25TA GT; SENN-261 GT; TRAM50TA2 GT; ZINC1CAP3 GT
--- NOTE | 2022-08-19 16:30 | NUR ---
CAMILLE [id number] from [facility] "AMS yesterday, Weakness,Respiratory distress, abnormal lab tests"
[2022-08-19] MEDS ORDERED: MIDO10TA GT (16:49)
--- NOTE | 2022-08-19 17:23 | NUR ---
ESTABLISHED IV LINE LEFT UPPER ARM 18G INFUSING
[2022-08-19] MEDS ORDERED: IV NS 0.9% 500 ML BAG IV ONE (17:30)
[2022-08-19 17:35] LABS: BASOPHILS % (AUTO) 0.1 % (0.0-2.0); EOSINOPHILS % (AUTO) 8.3 % (0.0-6.0); HEMATOCRIT 25 % (33-45); LYMPHOCYTES # (AUTO) 0.4 K/uL (0.8-4.8); LYMPHOCYTES % (AUTO) 5.3 % (20.0-44.0); MEAN CORPUSCULAR HGB CONC 32 g/dl (31.0-36.0); MEAN CORPUSCULAR VOLUME 107 fL (82-100); MONOCYTES # (AUTO) 0.3 K/uL (0.1-1.30); MONOCYTES % (AUTO) 4.3 % (2.0-12.0); NEUTROPHILS # (AUTO) 6.1 K/uL (1.8-8.9); PLATELET COUNT (AUTO) 274 K/uL (150-450); WHITE BLOOD COUNT (AUTO) 7.5 K/uL (4.3-11.0)
[2022-08-19 17:50] LABS: CALCIUM, SERUM 10.9 mg/dL (8.5-10.1); CARBON DIOXIDE 27 mmol/L (21-32); CHLORIDE 93 mmol/L (98-107); CREATININE 4.2 mg/dL (0.6-1.3); GLUCOSE 104 mg/dL (74-106); POTASSIUM 5.2 mmol/L (3.5-5.1); SODIUM SERUM 132 mmol/L (136-145)
[2022-08-19 17:56] LABS: SERUM AMMONIA < 10 umol/L (11-32)
[2022-08-19] MEDS ORDERED: ASPIRIN 325 MG TABLET GT ONE (18:00)
[2022-08-19] MEDS ORDERED: FUROSEMIDE 40 MG/4 ML VIAL IV ONE (18:00)
[2022-08-19] MEDS ORDERED: VANCOMYCIN 1 GM in IV D5W 250 ML IV SCH (18:00)
[2022-08-19] MEDS ORDERED: PIPERACILLIN /TAZOBACTAM 3.375 G in IV D5W 50 ML IV ONE (18:00)
[2022-08-19 18:04] LABS: ALANINE AMINOTRANSFERASE 18 U/L (12-78); ALKALINE PHOSPHATASE 149 U/L (46-116); ASPARTATE AMINOTRANSFERASE 31 U/L (15-37); BILIRUBIN,DIRECT 0.2 mg/dL (0.0-0.2); BILIRUBIN,TOTAL 0.4 mg/dL (0.2-1.0); TOTAL PROTEIN, SERUM 7.9 g/dL (6.4-8.2); UREA NITROGEN, BLOOD 117 mg/dL (7-18)
[2022-08-19 18:07] LABS: BAND % (MANUAL) 4 % (0.0-5.0); BASOPHILS % (MANUAL) 0 % (0.0-2.0); EOSINOPHILS % (MANUAL) 7 % (0-4); LYMPHOCYTES % (MANUAL) 9 % (16-48); MONOCYTES % (MANUAL) 4 % (0-11.0); NEUTROPHILS % (MANUAL) 76 (42-76)
[2022-08-19 18:10] LABS: ALBUMIN 1.1 g/dL (3.4-5.0)
[2022-08-19] MEDS ORDERED: ASPIRIN 325 MG TABLET ONE ×2 (18:27→19:48)
[2022-08-19] MEDS ORDERED: FUROSEMIDE 40 MG/4 ML VIAL ONE (18:27)
[2022-08-19] MEDS ORDERED: NOREPINEPHRINE 8 MG in IV NS 0.9% 242 ML IV PRN (18:30)
[2022-08-19] MEDS ORDERED: ALBUMIN 5% 25 GM in PREMIX 1 EA IV ONE (18:30)
[2022-08-19] MEDS ORDERED: NOREPINEPHRINE 8 MG in IV NS 0.9% 242 ML IV ONE (18:30)
[2022-08-19 18:31] LABS: THYROID STIMULATING HORMONE 13.858 uIU/mL (0.358-3.74)
--- NOTE | 2022-08-19 18:40 | NUR ---
RT Received pt on settings as noted with Shiley 8 XLT P trach.Pt tolerating current settings. Ambu bag at bedside. No new orders- will continue to monitor.
--- NOTE | 2022-08-19 18:45 | NUR ---
STARTED LEVOPHED AT LEFT AC AT THE RATE OF 0.1 MCG/KG/MIN PER PROTOCOL TO BE TITRATED TO EFFECT
[2022-08-19] MEDS ORDERED: ALBUMIN 25% 25 GM in PREMIX 1 EA IV ONE (19:00)
--- NOTE | 2022-08-19 19:00 | NUR ---
URINE SAMPLE OBTAINED SENT TO LAB
--- NOTE | 2022-08-19 19:34 | NUR ---
2ND IV LINE AT RIGHT UPPER ARM 18G
--- NOTE | 2022-08-19 19:38 | NUR ---
RT pt received on mechanical vent with current settings. trach, patent, secure. vent plugged in to red outlet. alarms on and audible. moderate, thick secretions suctioned via trach. no sob, no resp distress noted. ambu bag at bedside.
--- NOTE | 2022-08-19 19:40 | NUR ---
BP 72/21. HR 126 TITRATED LEVOPHEN TO 0.5MCG/MG/MIN.
--- NOTE | 2022-08-19 19:44 | NUR ---
COVID PCR ANTIGEN SWAB COLLECTED AND SENT TO LAB
[2022-08-19] MEDS ORDERED: PIPERACILLIN /TAZOBACTAM 3.375 G VIAL IV ONE (19:50)
[2022-08-19] MEDS ORDERED: VANCOMYCIN 1 GM VIAL ONE (19:50)
--- NOTE | 2022-08-19 20:13 | NUR ---
DAY SHIFT RN ENDORSED TO ADMIN ASPIRIN 325MG VIA [employer]. ADMIN ORDERED.
--- NOTE | 2022-08-19 20:20 | NUR ---
BRINA 8 INTACT VENT SETTING: FIO2 40% VT 500 RR 18 1:E 1:2 PEEP 5 TOLERATING AT 98%
--- NOTE | 2022-08-19 20:42 | NUR ---
LA 8.6
--- NOTE | 2022-08-19 20:53 | NUR ---
[facility] PAGED
[2022-08-19] MEDS ORDERED: TRAMADOL HCL 50 MG TABLET GT PRN (21:00)
[2022-08-19] MEDS ORDERED: NEPRO VAN 237 ML CAN GT SCH (21:00)
[2022-08-19] MEDS ORDERED: diphenhydrAMINE HCL 25 MG CAPSULE PO PRN (21:00)
[2022-08-19] MEDS ORDERED: Medication Not On Formulary EA (Ipratropium/Albuterol Sulfate (Combivent Respimat 20-100 IH PRN (21:00)
[2022-08-19] MEDS ORDERED: POLYETHYLENE GLYCOL 3350 17 GM POWD.PACK GT PRN (21:00)
[2022-08-19] MEDS ORDERED: CHLORHEXIDINE GLUCONATE 15 ML UDC MM SCH (21:00)
--- NOTE | 2022-08-19 21:03 | NUR ---
EMT AT PT'S BEDSIDE FOR EKG
--- NOTE | 2022-08-19 21:14 | NUR ---
CALLED RT FOR ABG
--- NOTE | 2022-08-19 21:18 | NUR ---
RT AT PT'S BEDSIDE FOR ABG
[2022-08-19] MEDS ORDERED: AMIODARONE 150 MG/3 ML VIAL IV ONE ×2 (21:29→21:30)
[2022-08-19 21:30] LABS: ABG BASE EXCESS -16.5 mmol/L; ABG PCO2 31.7 mmHg (35.0-45.0); ABG PH 7.155 (7.350-7.450); ABG PO2 96.9 mmHg (75.0-100.0); COHb 0.3 % (0.5-1.5); MetHb 0.4 % (0.0-1.5); O2Hb 95.4 % (94.0-97.0); SITE, ABG Right Radial; VENT MODE, BG AC 18 500 40% +5
[2022-08-19] MEDS ORDERED: Z GUARD REMEDY 4 OZ OINT TP PRN (21:30)
[2022-08-19] MEDS ORDERED: DEXTROSE 50%-WATER 50 ML DISP.SYRIN IV PRN (21:30)
[2022-08-19] MEDS ORDERED: *INSULIN REGULAR(HUMULIN R)HUM 100 UNIT/ML VIAL SQ PRN (21:30)
[2022-08-19] MEDS ORDERED: IV NS 0.9% 1,000 ML IV SCH (21:30)
[2022-08-19] MEDS ORDERED: INSULIN REGULAR, HUMAN 100 UNIT/ML 3 ML VIAL SQ PRN (21:30)
[2022-08-19] MEDS ORDERED: ONDANSETRON HCL/PF 4 MG/2 ML VIAL IVP PRN (21:30)
[2022-08-19] MEDS ORDERED: ACETAMINOPHEN 325 MG TABLET PO PRN (21:30)
[2022-08-19] MEDS ORDERED: MORPHINE SULFATE INJ 2 MG/ML DISP.SYRIN IV PRN (21:30)
--- NOTE | 2022-08-19 21:38 | NUR ---
US TECH AT PT'S BEDSIDE
--- NOTE | 2022-08-19 21:46 | NUR ---
PER DR. CARBONE'S VERBAL ORDER TO TITRATE LEVOPHEN DOWN. LEVOPHEN AT 0.3MCG/KG/MIN BP118/59 HR 154 WILL CONTINUE TO MONITOR
--- NOTE | 2022-08-19 21:52 | NUR ---
PRO ISIS SET 33.42
[2022-08-19] MEDS ORDERED: SODIUM BICARBONATE SYR 50 MEQ/50 ML DISP.SYRIN ONE (21:53)
[2022-08-19] MEDS ORDERED: Sodium Bicarbonate 150 MEQ in IV NS 0.9% 1,000 ML IV ONE (22:00)
[2022-08-19] MEDS ORDERED: BLOOD SUGAR DIAGNOSTIC 1 EACH STRIP VI SCH (22:00)
[2022-08-19] MEDS ORDERED: SENNOSIDES 8.6 MG TABLET GT SCH (22:00)
[2022-08-19] MEDS ORDERED: NOREPINEPHRINE 4 MG/4 ML AMPUL IV ONE ×2 (22:04→23:28)
[2022-08-19] MEDS ORDERED: LEVOTHYROXINE INJ 100 MCG VIAL IV STA (22:06)
--- NOTE | 2022-08-19 22:12 | NUR ---
BED GIVEN 259 ICU
[2022-08-19 22:14] LABS: BILIRUBIN,URINE 1+ (NEGATIVE); COLOR,URINE DARK YELLOW (YELLOW); LEUKOCYTE ESTERASE ,URINE 2+ (NEGATIVE); NITRITE, URINE POSITIVE (NEGATIVE); PROTEIN,URINE 2+ mg/dl (NEGATIVE); UGLUCOSE NEGATIVE (NEGATIVE); UROBILINOGEN,URINE 0.2 EU/dL (0.2)
[2022-08-19 22:18] LABS: BACTERIA,URINE Many /HPF (None Seen); SQUAMOUS EPITHELIAL CELL,UR Few /HPF (None Seen); WBC,URINE TOO NUMEROUS TO COUN /HPF (0-3)
--- NOTE | 2022-08-19 22:26 | NUR ---
DR. PATEL WEIR AT PT'S BEDSIDE
[2022-08-19] MEDS ORDERED: Sodium Bicarbonate 100 MEQ in IV D5/0.45 NACL 1,000 ML IV SCH (22:30)
[2022-08-19] MEDS ORDERED: ALBUMIN 25% 25 GM in PREMIX 1 EA IV STA (22:40)
[2022-08-19] MEDS ORDERED: SODIUM BICARBONATE SYR 50 MEQ/50 ML DISP.SYRIN IV STA (22:49)
--- NOTE | 2022-08-19 22:56 | NUR ---
PT RETURNED TO ER BED [address] VIA ACLS PROTOCOL WITH RT
--- NOTE | 2022-08-19 22:57 | NUR ---
RT pt transported to ct and back. no complications during transport. pt returned to room and placed back on vent.
[2022-08-19] MEDS ORDERED: LEVOTHYROXINE SODIUM 75 MCG TABLET GT SCH (23:00)
[2022-08-19] MEDS ORDERED: MIDODRINE HCL (5MG) 5 MG TABLET GT PRN (23:00)
--- NOTE | 2022-08-19 23:17 | NUR ---
REPORT GIVEN TO TIAGO CURING OVEN TENDER FOR LUIS
[2022-08-19 23:46] VITALS: BP 112/85
--- NOTE | 2022-08-19 23:50 | NUR ---
DR. DIAMANTE WEIR AT PT'S BEDSIDE TO INSERTED PICC LINE
[2022-08-20] MEDS ORDERED: Medication Not On Formulary EA (Ipratropium/Albuterol Sulfate (Combivent Respimat 20-100 IH SCH
[2022-08-20] MEDS ORDERED: VASOPRESSIN INJ 40 UNIT in IV NS 0.9% 38 ML IV PRN ×2
[2022-08-20] MEDS ORDERED: NOREPINEPHRINE 32 MG in IV NS 0.9% 218 ML IV PRN ×2
[2022-08-20] MEDS ORDERED: CEFEPIME 1 GM in IV D5W 50 ML IV ONE ×2
[2022-08-20] MEDS ORDERED: CALCIUM CHLORIDE 1,000 MG/10 ML DISP.SYRIN ONE (00:13)
[2022-08-20] MEDS ORDERED: ATROPINE SULFATE 1 MG/10 ML DISP.SYRIN ONE (00:15)
--- NOTE | 2022-08-20 00:15 | NUR ---
R IJ PICCLINE #18G INSERTED BY DR. CARBONE
--- NOTE | 2022-08-20 00:20 | NUR ---
NOTIFIED RAVIN GARCIA DAUGHTER IN LAW OF PT'S CONDITION [phone]
--- NOTE | 2022-08-20 00:21 | NUR ---
PRINCIPAL STATISTICAL SCIENTIST AT PT'S BEDSIDE TO CONFIRM PICCLINE PLACEMENT
[2022-08-20] MEDS ORDERED: INSULIN REGULAR, HUMAN 100 UNIT/ML 3 ML VIAL ONE (00:47)
--- NOTE | 2022-08-20 00:50 | NUR ---
RT Pt transported to ICU Rm 259 using ACLS protocol with BIMAL Reagan, pt placed on vent with vent plugged into red outlet, alarms on and audible, spare trach and ambu bag at bedside.
[2022-08-20 00:57] VITALS: BP 112/85
--- NOTE | 2022-08-20 00:57 | NUR ---
PT TRANSFERRED TO ICU VIA ACLS PROTOCOL WITH RT. PT ON LEVOPHED 1MCG/KG/MIN AND SODIUM BICARB 150MEQ IN D5W @ 80ML/HR
[2022-08-20] MEDS ORDERED: LEVOTHYROXINE INJ 100 MCG VIAL IV ONE (00:59)
[2022-08-20] MEDS ORDERED: Sodium Bicarbonate 150 MEQ in IV NS 0.9% 1,000 ML IV SCH (01:00)
--- NOTE | 2022-08-20 01:00 | NUR ---
PATENT SEARCHER NOTE PT RECEIVED FROM ICU VIA [facility] AT BED SIDE. PT ON VENT/TRACH TOLERATING THE SETTINGS WELL. PT CAME WITH VERY LOW HEART RATE IN 30"S. OBTUNDED. GETTING BICARB INFUSION AT 80 ML/HR, NO S/S OF INFILTRATION NOTED. GT INTACT AND PATENT BUT LEAKING FORM GT SITE BLACK COLOR LIQUID. WOUND ASSESSMENT DONE AND PICTURES TAKEN AND PLACE THEM IN THE CHART. F/C INTACT AND PATENT DRAINING TEDDY COLOR URINE. ON TELE MONITOR JUNCTIONAL WALETR CARDIAC RYHTHEM HR 35. SIDE RAILS UP X 3 AND CALL LIGHT WITHIN REACH. BED BATH GIVEN ALSO KEPT HER DRY AND CLEAN. CONTINUE TO MONITOR HER. Addendum: 08/20/22 at 0345 by LINDA COURTNEY RN PT CODE STATUS WAS DNR
[2022-08-20] MEDS ORDERED: NOREPINEPHRINE 4 MG/4 ML AMPUL IV ONE (01:17)
[2022-08-20] MEDS ORDERED: DOPamine 400MG/D5W 250ML RTU 250 ML ONE (01:18)
[2022-08-20] MEDS ORDERED: HYDROCORTISONE SOD SUCCINATE 100 MG/2 ML VIAL IV SCH (01:30)
[2022-08-20] MEDS ORDERED: DOPamine 400 MG in IV D5W 250 ML IV PRN (01:30)
[2022-08-20 01:41] VITALS: BP 62/28
[2022-08-20 02:00] VITALS: BP 0/0
--- NOTE | 2022-08-20 02:00 | NUR ---
TIP PUNCHER NOTE NOTE PT WITH NO PULSE, NO B/P. CHARGE NURSE DANIELLANE AT BED SIDE NOTE PT ASYSTOLY. NURSING URGENT CARE TECHNICIAN ALSO INFORMED.
[2022-08-20 02:12] LABS: ALANINE AMINOTRANSFERASE 20 U/L (12-78); ALKALINE PHOSPHATASE 174 U/L (46-116); ASPARTATE AMINOTRANSFERASE 47 U/L (15-37); BILIRUBIN,TOTAL 0.5 mg/dL (0.2-1.0); CARBON DIOXIDE 14 mmol/L (21-32); CHLORIDE 94 mmol/L (98-107); CREATININE 4.3 mg/dL (0.6-1.3); GLUCOSE 124 mg/dL (74-106); SODIUM SERUM 131 mmol/L (136-145); TOTAL PROTEIN, SERUM 7.5 g/dL (6.4-8.2)
--- NOTE | 2022-08-20 02:14 | NUR ---
MANAGER OF CREATIVE SERVICES NOTE RAVIN GARCIA DTR IN LAW RESPONSIBLE GREEN [employer]Y INFORMED THAT PT IS .
[2022-08-20 02:17] LABS: CALCIUM, SERUM 14.1 mg/dL (8.5-10.1); POTASSIUM 6.2 mmol/L (3.5-5.1); UREA NITROGEN, BLOOD 119 mg/dL (7-18)
[2022-08-20 02:18] LABS: ALBUMIN 1.3 g/dL (3.4-5.0)
--- NOTE | 2022-08-20 02:27 | NUR ---
ICU/ RN-AT 0057 DR. RANDALL WAS NOTIFIED THAT PT. HR IS 30S SHOLA, NO BP WITH PHONE ORDER TO START PT. ON DOPAMINE DRIP AT 2MCG/KG/MIN. WILL ATTEMPT TO WEAN LEVOPHED DRIP TOLERATED TO KEEP MAP>65, HR 80-100.
--- NOTE | 2022-08-20 02:30 | NUR ---
EMAIL MARKETING MANAGER NOTE ON LEGACY AND MILADYS'S OFFICE AND DOCUMENTED.
--- NOTE | 2022-08-20 02:39 | NUR ---
RN/ICU- PRONOUNCEMENT OF .PT. CODE STATUS"DO NOT RESUSCITATE" UNRESPONSIVE TO ANY FORM OF STIMULI. PUPILS ARE FIXED AND DILATED.APNEIC WITH ZERO RESPIRATIONS WHEN OFF THE VENT. EKG SHOWED ASYSTOLE X2 LEADS. WITH ABSENT HEART TONES ON AUSCULTATION, PERIPHERAL PULSES ARE ABSENT.PT. PRONOUNCED AT 0200 BY: TIAGO VERDUZCO RN/BSN
--- NOTE | 2022-08-20 02:48 | NUR ---
RN/ICU-DR. SWEENEY NOTIFIED OF PT. AT 0202
--- NOTE | 2022-08-20 03:58 | NUR ---
HOSTEL MANAGER NOTE POST CARE GIVEN.
--- NOTE | 2022-08-20 04:10 | NUR ---
SALVAGE MACHINE OPERATOR NOTE BODY MOVED TO [facility].
[2022-08-20] MEDS ORDERED: ALBUMIN 25% 25 GM in PREMIX 1 EA IV SCH (06:00)
[2022-08-20] MEDS ORDERED: PANTOPRAZOLE 40 MG/PACK PACK GT SCH (07:30)
[2022-08-20] MEDS ORDERED: POLYETHYLENE GLYCOL 3350 17 GM POWD.PACK PO SCH (09:00)
[2022-08-20] MEDS ORDERED: MIDODRINE HCL (5MG) 5 MG TABLET GT SCH (09:00)
[2022-08-20] MEDS ORDERED: LEVOTHYROXINE SODIUM 125 MCG TABLET GT SCH (09:00)
[2022-08-20] MEDS ORDERED: AMIODARONE HCL 200 MG TABLET GT SCH (09:00)
[2022-08-20] MEDS ORDERED: DOCUSATE SODIUM LIQ 100 MG/10 ML UDC PO SCH (09:00)
[2022-08-20] MEDS ORDERED: PROSOURCE / PROSTAT (PYXIS) 30 ML UDC GT SCH (09:00)
[2022-08-20] MEDS ORDERED: POTASSIUM CHLORIDE 20 MEQ POWDER PACKET GT SCH (09:00)
[2022-08-20] MEDS ORDERED: ASCORBIC ACID 500 MG TABLET GT SCH (09:00)
[2022-08-20] MEDS ORDERED: ZINC SULFATE 220 MG CAPSULE GT SCH (09:00)
[2022-08-20] MEDS ORDERED: QUETIAPINE FUMARATE 25 MG TABLET GT SCH (09:00)
[2022-08-20] MEDS ORDERED: HEPARIN SODIUM, PORCINE 5000 UNITS/1 ML VIAL SQ SCH (17:00)
[2022-08-20] MEDS ORDERED: INSULIN GLARGINE, 100 UNIT/ML CARTRIDGE SQ SCH (22:00)
[2022-08-22] MEDS ORDERED: EPOETIN ALFA (10,000 UNIT) 10,000 UNIT/ML VIAL SQ SCH (21:00)
== END 2022-08-20 02:00 | DRG 871 ==
LOC: ER 16:14 → ICU 22:20
PROVIDERS: ADMIT Internal Medicine; ATTEND Internal Medicine
PROC: 5A1935Z Respiratory Ventilation, Less than 24 Consecutive Hours (ICD-10-PCS; principal; 2022-08-19)
PROC: 05HM33Z Insertion of Infusion Device into Right Internal Jugular Vein, Percutaneous Approach (ICD-10-PCS; 2022-08-19)
PROC: B543ZZA Ultrasonography of Right Jugular Veins, Guidance (ICD-10-PCS; 2022-08-19)
DX: A41.9 Sepsis, unspecified organism (principal); E03.5 Myxedema coma; G93.41 Metabolic encephalopathy; R65.21 Severe sepsis with septic shock; J96.20 Acute and chronic respiratory failure, unspecified whether with hypoxia or hypercapnia; I21.4 Non-ST elevation (NSTEMI) myocardial infarction; J18.9 Pneumonia, unspecified organism; E43 Unspecified severe protein-calorie malnutrition; N17.0 Acute kidney failure with tubular necrosis; K65.1 Peritoneal abscess; N39.0 Urinary tract infection, site not specified; Z99.11 Dependence on respirator [ventilator] status; I13.0 Hypertensive heart and chronic kidney disease with heart failure and stage 1 through stage 4 chronic kidney disease, or unspecified chronic kidney disease; E87.1 Hypo-osmolality and hyponatremia; I48.92 Unspecified atrial flutter; J90 Pleural effusion, not elsewhere classified; E87.20 Acidosis, unspecified; M46.28 Osteomyelitis of vertebra, sacral and sacrococcygeal region; I74.09 Other arterial embolism and thrombosis of abdominal aorta; E11.22 Type 2 diabetes mellitus with diabetic chronic kidney disease; Z66 Do not resuscitate; Z93.0 Tracheostomy status; Z93.1 Gastrostomy status; R13.10 Dysphagia, unspecified; N18.9 Chronic kidney disease, unspecified; I69.398 Other sequelae of cerebral infarction; Z79.4 Long term (current) use of insulin; E03.9 Hypothyroidism, unspecified; E87.5 Hyperkalemia; D53.9 Nutritional anemia, unspecified; I25.10 Atherosclerotic heart disease of native coronary artery without angina pectoris; I50.9 Heart failure, unspecified; I35.0 Nonrheumatic aortic (valve) stenosis; E88.09 Other disorders of plasma-protein metabolism, not elsewhere classified; E83.52 Hypercalcemia; E87.8 Other disorders of electrolyte and fluid balance, not elsewhere classified; E11.65 Type 2 diabetes mellitus with hyperglycemia; R74.8 Abnormal levels of other serum enzymes; E11.69 Type 2 diabetes mellitus with other specified complication
CPT/HCPCS: 36415; 36600; 71045-TC; 71250-TC; 80048-TC; 80053-TC; 80076-TC; 81001; 82040-TC; 82140-TC; 82803-TC; 82962-TC; 83605-TC; 83880; 84439-TC; 84443-TC; 84481; 84484-TC; 85025-TC; 87040-TC; 87081-TC; 87086-TC; 93307-TC; 94002-TC; 94799-TC; 99082-TC; A4216; A6253; A6403; C9803; G0378; J0282; J0461; J0692; J1265; J1815; J1940; J2543; J3370; J3490; J7030; J7040; J7050; J7060; J7070; P9045; P9047; U0003